=== PATIENT | female | born 1930 | race Asian ===

== ENCOUNTER 2016-07-20 14:14 | Inpatient (IN) | payer OTHER, MEDICARE ==
[~2016-07-20] VITALS: Ht 134.6 cm; Wt 47.2 kg
[~2016-07-20 14:14] MED LIST: A/B OTIC15 ML; ANT25 PO; ASPIR 8181 MG PO; BENTYL10 MG PO; CITRACAL PO; CRESTOR20 M1 PO; METOPROLOL SUCC25 M1 PO; PRI20 PO; ZESTRIL20 MG PO; ZOC20 PO; ZOCOR10 MG PO; [UNRECOGNIZED DRUG - OTHER] PO
[2016-07-20 17:34] LABS: microscopic required? NO
[2016-07-20 17:55] LABS: CALCIUM 7.8 mg/dL (8.5-10.1); CARBON DIOXIDE 33.1 mmol/L (21-32); CHLORIDE SERUM 104 mmol/L (98-107); CREATININE SERUM 0.9 mg/dL (0.6-1.0); GLUCOSE SERUM 118 mg/dL (74-106); POTASSIUM SERUM 4.4 mmol/L (3.5-5.1); SODIUM SERUM 140 mmol/L (136-145)
[2016-07-20 17:59] LABS: ALBUMIN 3.6 g/dL (3.4-5.0); ALKALINE PHOSPHATASE 92 U/L (46-116); ALT/SGPT 15 U/L (14-59); AMYLASE 89 U/L (25-115); AST/SGOT 27 U/L (15-37); BILIRUBIN TOTAL 0.72 mg/dL (0.20-1.00); CHOLESTEROL 139 mg/dL (<200); LIPASE 395 IU/L (73-393)
[2016-07-20 18:01] LABS: BASOPHIL % 0.5 % (0-2); PLATELET COUNT 160 x10^3mcL (130-400); RED CELL DISTRIBUTION WIDTH 14.1 % (11.5-14.5)
[2016-07-20 18:19] LABS: TOTAL PROTEIN, SERUM 7.4 g/dL (6.4-8.2)
[2016-07-20 18:27] LABS: HDL CHOLESTEROL 30 mg/dL (40-60)
[2016-07-20] MEDS ORDERED: SIMVASTATIN20 M1 PO (18:40)
[2016-07-20] MEDS ORDERED: ULTRAM50 MG PO (18:40)
[2016-07-20 19:10] LABS: UA SPECIFIC GRAVITY <=1.005 (1.005-1.035); urine erythrocyte NEGATIVE (NEGATIVE)
[2016-07-20 20:50] VITALS: BP 177/82
[2016-07-20 20:55] VITALS: Ht 134.6 cm; Wt 47.2 kg
[2016-07-20 21:41] LABS: CHOLESTEROL 141 mg/dL (<200)
[2016-07-20 21:42] LABS: CHOLESTEROL/HDL RATIO 4.9; HDL CHOLESTEROL 29 mg/dL (40-60); TRIGLYCERIDES 873 mg/dL (<150)
[2016-07-20 21:42] LABS: AMPHETAMINE QUAL UR NONE DETECTED (NEG <=1000)
[2016-07-20 21:46] LABS: T3 TOTAL 0.81 ng/mL
[2016-07-20 21:47] LABS: FREE T4 1.02 ng/dL (0.76-1.46); FREE THYROXINE INDEX 2.5 ug/dL (1.4-4.5); T4(THYROXINE) 6.5 ug/dL (4.7-13.3)
[2016-07-20 23:21] VITALS: BP 156/67
[2016-07-21 05:38] VITALS: BP 137/61
[2016-07-21 07:12] LABS: BASOPHIL % 0.6 % (0-2); PLATELET COUNT 141 x10^3mcL (130-400)
[2016-07-21 07:28] LABS: CALCIUM 8.2 mg/dL (8.5-10.1); CARBON DIOXIDE 27.9 mmol/L (21-32); CHLORIDE SERUM 110 mmol/L (98-107); CREATININE SERUM 0.8 mg/dL (0.6-1.0); GLUCOSE SERUM 84 mg/dL (74-106); MAGNESIUM 2.4 mg/dL (1.8-2.4); PHOSPHOROUS 3.8 mg/dL (2.5-4.9); POTASSIUM SERUM 4.5 mmol/L (3.5-5.1); SODIUM SERUM 145 mmol/L (136-145)
[2016-07-21 10:48] VITALS: BP 170/62
[2016-07-21 11:30] VITALS: BP 131/68
[2016-07-21 18:45] VITALS: BP 143/75
[2016-07-21 21:14] VITALS: BP 143/63
[2016-07-22 06:33] LABS: BASOPHIL % 0.6 % (0-2); PLATELET COUNT 156 x10^3mcL (130-400)
[2016-07-22 06:34] VITALS: BP 153/68
[2016-07-22 07:00] LABS: CALCIUM 8.7 mg/dL (8.5-10.1); CARBON DIOXIDE 27.6 mmol/L (21-32); CHLORIDE SERUM 109 mmol/L (98-107); CREATININE SERUM 0.8 mg/dL (0.6-1.0); GLUCOSE SERUM 78 mg/dL (74-106); MAGNESIUM 2.5 mg/dL (1.8-2.4); PHOSPHOROUS 3.7 mg/dL (2.5-4.9); SODIUM SERUM 145 mmol/L (136-145)
[2016-07-22 09:10] VITALS: BP 138/51
[2016-07-22] MEDS ORDERED: COL100 PO (15:33)
[2016-07-22] MEDS ORDERED: HYOSCYAMINE0.125 MG PO (15:41)
[2016-07-22] MEDS ORDERED: TOPROL XL25 MG PO (16:48)
[2016-07-22 17:10] VITALS: BP 129/55
[2016-07-22 17:12] VITALS: BP 129/55
== END 2016-07-22 18:00 | disposition home or self-care (01) | DRG 282 ==
LOC: ED 14:14 → DU 19:49 → MU 19:49 → DU 20:15 → MU 07-21 16:26
PROVIDERS: Emergency Medicine; Family Medicine; Internal Medicine Gastroenterology; ADMIT Family Medicine
PROC: 0DB98ZX Excision of Duodenum, Via Natural or Artificial Opening Endoscopic, Diagnostic (ICD-10-PCS; principal; 2016-07-22 11:00)
DX: K85.90 Acute pancreatitis without necrosis or infection, unspecified (principal); K76.0 Fatty (change of) liver, not elsewhere classified; I11.9 Hypertensive heart disease without heart failure; K57.30 Diverticulosis of large intestine without perforation or abscess without bleeding; I25.10 Atherosclerotic heart disease of native coronary artery without angina pectoris; E78.00 Pure hypercholesterolemia, unspecified; E78.1 Pure hyperglyceridemia; I35.0 Nonrheumatic aortic (valve) stenosis; I25.2 Old myocardial infarction; Z68.26 Body mass index [BMI] 26.0-26.9, adult; Z98.49 Cataract extraction status, unspecified eye; Z83.3 Family history of diabetes mellitus; Z82.49 Family history of ischemic heart disease and other diseases of the circulatory system
CPT/HCPCS: 43235; 80307; 83880; 84439; G0480; J1200; J1610; J1885; J2250; J2310; J2405; J3010; J3490; J7030; Q0092; Q0177

== ENCOUNTER 2016-08-10 06:23 | Emergency (ER) | payer MEDICARE, OTHER ==
[~2016-08-10 06:23] MED LIST changes: +COL100 PO; +HYOSCYAMINE0.125 MG PO; +SIMVASTATIN20 M1 PO; +TOPROL XL25 MG PO; +ULTRAM50 MG PO
[2016-08-10 06:55] VITALS: BP 180/88
== END 2016-08-10 06:55 | disposition home or self-care (01) ==
LOC: ED 06:23
DX: T78.40XA Allergy, unspecified, initial encounter (principal); T36.95XA Adverse effect of unspecified systemic antibiotic, initial encounter; I10 Essential (primary) hypertension; I25.10 Atherosclerotic heart disease of native coronary artery without angina pectoris; E78.5 Hyperlipidemia, unspecified; Y92.89 Other specified places as the place of occurrence of the external cause

== ENCOUNTER 2016-08-10 22:40 | Emergency (ER) | payer MEDICARE, OTHER ==
[2016-08-10 23:29] LABS: BASOPHIL % 0.3 % (0-2); PLATELET COUNT 171 x10^3mcL (130-400)
[2016-08-10 23:30] LABS: RED CELL DISTRIBUTION WIDTH 14.7 % (11.5-14.5)
[2016-08-10 23:40] LABS: CALCIUM 9.1 mg/dL (8.5-10.1); CARBON DIOXIDE 26.3 mmol/L (21-32); CHLORIDE SERUM 97 mmol/L (98-107); CREATININE SERUM 1.1 mg/dL (0.6-1.0); GLUCOSE SERUM 103 mg/dL (74-106); POTASSIUM SERUM 3.9 mmol/L (3.5-5.1); SODIUM SERUM 134 mmol/L (136-145)
[2016-08-10 23:44] LABS: ALBUMIN 3.7 g/dL (3.4-5.0); ALKALINE PHOSPHATASE 101 U/L (46-116); ALT/SGPT 34 U/L (14-59); AST/SGOT 34 U/L (15-37); BILIRUBIN TOTAL 0.5 mg/dL (0.20-1.00); TOTAL PROTEIN, SERUM 7.1 g/dL (6.4-8.2)
[2016-08-10 23:56] LABS: CK-MB 0.8 ng/mL (0-3.6)
[2016-08-11 02:00] VITALS: BP 136/76
== END 2016-08-11 02:00 | disposition short-term general hospital (02) ==
LOC: ED 22:40
PROVIDERS: Emergency Medicine
DX: L51.2 Toxic epidermal necrolysis [Lyell] (principal); I10 Essential (primary) hypertension; I25.2 Old myocardial infarction
CPT/HCPCS: J7120; Q0092

== ENCOUNTER 2017-03-27 11:50 | Emergency (ER) | payer MEDICARE, OTHER ==
[2017-03-27 15:16] VITALS: BP 177/88
== END 2017-03-27 15:17 | disposition home or self-care (01) ==
LOC: ED 11:50
DX: J20.9 Acute bronchitis, unspecified (principal); I25.2 Old myocardial infarction; I10 Essential (primary) hypertension; E78.00 Pure hypercholesterolemia, unspecified
CPT/HCPCS: Q0092

== ENCOUNTER 2017-11-18 21:23 | Emergency (ER) | payer MEDICARE, OTHER ==
[~2017-11-18] VITALS: Ht 149.9 cm; Wt 50.3 kg
[2017-11-18 21:44] VITALS: BP 192/83; Ht 149.9 cm; Wt 50.3 kg
== END 2017-11-18 22:21 | disposition home or self-care (01) ==
LOC: ED 21:23
DX: H92.01 Otalgia, right ear (principal); I10 Essential (primary) hypertension; E78.00 Pure hypercholesterolemia, unspecified